=== PATIENT | male | born 1990 | race Two or more races ===

== ENCOUNTER 2018-05-02 18:32 | Emergency (ER) | payer OTHER ==
[2018-05-02] MEDS: KETOROLAC 60 MG/2 ML VIAL (J1885) IM ×2 (20:23)
== END 2018-05-02 20:57 | disposition home or self-care (01) ==
LOC: M ED 18:32
DX: S60.211A Contusion of right wrist, initial encounter (principal); W22.8XXA Striking against or struck by other objects, initial encounter; Y92.89 Other specified places as the place of occurrence of the external cause; Y93.89 Activity, other specified; Y99.1 Military activity; Z72.0 Tobacco use
CPT/HCPCS: J1885